=== PATIENT | female | born 1970 | race Caucasian/White ===

== ENCOUNTER 2016-12-02 17:50 | Inpatient (IN) | payer OTHER ==
[~2016-12-02] VITALS: Ht 162.6 cm; Wt 91.4 kg
[2016-12-02] MEDS ORDERED: BSP/10 PO (19:57)
[2016-12-02] MEDS ORDERED: CHOL100010 PO (19:57)
[2016-12-02] MEDS ORDERED: OMEG10007 PO (19:57)
[2016-12-02] MEDS ORDERED: DULO60CA44 PO (19:57)
[2016-12-02] MEDS ORDERED: TRAM-10 PO (19:57)
[2016-12-02] MEDS ORDERED: MULT-506 PO (19:57)
[2016-12-02] MEDS ORDERED: ONDANSETRON INJ 2 MG/ML 2 ML VIAL IV STA (20:03)
[2016-12-02] MEDS ORDERED: MoRPHine SULFATE 4 MG/ML 1 ML CARP\\VIAL IV STA (20:03)
[2016-12-02] MEDS ORDERED: SODIUM CHLORIDE 0.9% 500ML 500 ML IV STA (20:03)
--- NOTE | 2016-12-02 20:03 | DIAGNOSTIC IMAGING REPORT ---
CHEST ONE VIEW PORTABLE CLINICAL HISTORY: fever COMPARISON STUDY: No previous studies for comparison. FINDINGS: The cardiac and mediastinal contours are normal. There is no evidence of focal pulmonary consolidation. There is no evidence of failure. No pleural effusions are visualized.[ IMPRESSION: No active disease in the chest. Electronically signed by: Mark Stevens M.D. 12/02/2016 8:02 PM Dictated Date/Time: 12/02/2016 8:02 PM
[2016-12-02 20:26] LABS: HEMATOCRIT 28.4 % (37-47); MEAN CELL VOLUME 71.9 fL (80-100); MEAN CORPUSCULAR HEMOGLOBIN 23.3 pg (25-34); MEAN CORPUSCULAR HGB CONC 32.4 g/dl (32-36); MEAN PLATELET VOLUME 8.9 fL (7.4-10.4); PLATELET COUNT 420 K/uL (130-400); RED BLOOD COUNT 3.95 M/uL (4.2-5.4); WHITE BLOOD COUNT 18.99 K/uL (4.8-10.8)
[2016-12-02 20:28] LABS: ISTAT CREATININE 0.5 mg/dl (0.6-1.3); ISTAT HEMOGLOBIN 9.9 g/dl (12.0-16.0); ISTAT IONIZED CALCIUM 1.04 mmol/l (1.12-1.32)
[2016-12-02 20:34] LABS: INR 1.1 (0.9-1.1); PROTHROMBIN TIME (PATIENT) 11.4 SECONDS (9.0-12.0)
[2016-12-02 20:44] LABS: ALT/SGPT 21 U/L (12-78); AST/SGOT 14 U/L (15-37); BLOOD UREA NITROGEN 11 mg/dl (7-18); BUN/CREATININE RATIO 20.8 (10-20); CALCIUM 8.2 mg/dl (8.5-10.1); CARBON DIOXIDE 28 mmol/L (21-32); CHLORIDE 105 mmol/L (98-107); CREATININE 0.54 mg/dl (0.60-1.20); GLUCOSE 109 mg/dl (70-99); MAGNESIUM 2.3 mg/dl (1.8-2.4); POTASSIUM 3.6 mmol/L (3.5-5.1); SODIUM 141 mmol/L (136-145)
[2016-12-02 20:47] LABS: ALKALINE PHOSPHATASE 123 U/L (45-117)
[2016-12-02 21:04] LABS: COMPLETE YES; EOSINOPHIL % 0.9 %; LYMPH ABS # 2.15 K/uL (1.2-3.4); LYMPHOCYTE % 11.3 %; META ABS # 0.32 K/uL (0-0); METAMYELOCYTE % 1.7 %; MYELOCYTE % 0.9 %; NEUTROPHILS % 79.1 %; POLYCHROMASIA 1+
[2016-12-02 21:48] LABS: URINE APPEARANCE CLEAR (CLEAR); URINE BILIRUBIN NEG (NEG); URINE COLOR DK YELLOW; URINE EPITHELIAL CELL AUTO >30 /lpf (0-5); URINE NITRITE NEG (NEG); URINE PH 5.5 (4.5-7.5); URINE SPECIFIC GRAVITY 1.019 (1.000-1.030); UROBILINOGEN NEG (NEG); ZZUR CULT IF INDIC CLEAN CATCH NO
[2016-12-02 21:51] LABS: MANUAL MICROSCOPIC REQUIRED? NO; REVIEW REQ? NO
--- NOTE | 2016-12-02 22:09 | DIAGNOSTIC IMAGING REPORT ---
ULTRASOUND RIGHT VENOUS DOPP LOWER EXT UNILAT CLINICAL HISTORY: Right leg swelling COMPARISON STUDY: No previous studies for comparison. FINDINGS: Real-time and color flow Doppler imaging were performed. Flow was seen within the femoral, popliteal and calf veins with no intraluminal thrombus demonstrated. The saphenous vein is patent. There is right lower extremity edema. IMPRESSION: No evidence of right lower extremity DVT Electronically signed by: Mark Stevens M.D. 12/02/2016 10:08 PM Dictated Date/Time: 12/02/2016 10:07 PM
[2016-12-02] MEDS ORDERED: OPTIRAY 320 IV PRN (22:30)
--- NOTE | 2016-12-02 22:30 | DIAGNOSTIC IMAGING REPORT ---
ENHANCED CT SCAN OF THE RIGHT HIP AND FEMUR CT DOSE: 721.68 mGy.cm CLINICAL HISTORY: Right hip pain TECHNIQUE: Patient was scanned in a dynamic helical fashion during intravenous administration 116 cc of Optiray 320. COMPARISON STUDY: None. FINDINGS: There is artifact secondary to a total right hip arthroplasty. Interval development of bilateral hip surgery. No evidence of with recent "only minimally the right. There is a fluid collection containing air bubbles within the lateral aspect the proximal thigh. This measures 12 cm x 7 cm x 7 cm. This could represent a postsurgical fluid collection or abscess. Clinical correlation this regard is advocated. There is a small joint effusion at the level the knee. No acute fractures or dislocations are visualized. IMPRESSION: 1. Postsurgical changes of a total right hip arthroplasty. 2. No acute fractures 3. 12 x 7 x 7 mm fluid collection containing air bubbles within the lateral aspect of the proximal thigh. This may relate to prior surgery. Given the air bubbles, this could represent an abscess. Clinical correlation with the date of the surgical procedure is recommended. Electronically signed by: Mark Stevens M.D. 12/02/2016 10:29 PM Dictated Date/Time: 12/02/2016 10:23 PM
[2016-12-02] MEDS ORDERED: VANCOMYCIN INJ 1,800 MG in SODIUM CHLORIDE 0.9% 500ML 500 ML IV STA (22:47)
[2016-12-02] MEDS ORDERED: PIPERACILLIN/TAZOBACTAM 4.5 GM/100ML D5W IV STA (22:47)
--- NOTE | 2016-12-02 23:05 | Surgery Progress Note ---
Surgery Progress Note Date of Service Dec 02, 2016. Subjective called by ER doctor for Rt hip abscess seen on CT scan Objective Vital Signs: Date Time Temp Pulse Resp B/P Pulse Ox O2 Delivery O2 Flow Rate FiO2 12/02/16 22:32 103 20 124/66 100 Room Air 12/02/16 20:55 88 20 122/71 99 Room Air 12/02/16 18:10 37.3 102 18 123/69 100 Room Air Laboratory Results: Results Past 24 Hours Test 12/02/16 20:09 12/02/16 20:12 12/02/16 20:15 12/02/16 21:30 Range/Units Bedside Lactic Acid Venous 1.94 0.90-1.70 mmol/L Bedside Hemoglobin 9.9 12.0-16.0 g/dl Bedside Hematocrit 29 37-47 % Bedside Sodium 138 135-144 mEq/L Bedside Potassium 5.1 3.3-5.0 mEq/L Bedside Chloride 103 101-112 mEq/L Bedside Total CO2 27 24-31 mEq/l Anion Gap 14.0 8.0 3-11 mmol/L Bedside Blood Urea Nitrogen 13 7-18 mg/dl Bedside Creatinine 0.5 0.6-1.3 mg/dl Bedside Glucose (other) 113 70-99 mg/dl Bedside Ionized Calcium (Lázaro) 1.04 1.12-1.32 mmol/l White Blood Count 18.99 4.8-10.8 K/uL Red Blood Count 3.95 4.2-5.4 M/uL Hemoglobin 9.2 12.0-16.0 g/dL Hematocrit 28.4 37-47 % Mean Corpuscular Volume 71.9 80-100 fL Mean Corpuscular Hemoglobin 23.3 25-34 pg Mean Corpuscular Hemoglobin Concent 32.4 32-36 g/dl Platelet Count 420 130-400 K/uL Mean Platelet Volume 8.9 7.4-10.4 fL RDW Standard Deviation 45.1 36.4-46.3 fL RDW Coefficient of Variation 17.4 11.5-14.5 % Neutrophils % (Manual) 79.1 % Lymphocytes % (Manual) 11.3 % Monocytes % (Manual) 6.1 % Eosinophils % (Manual) 0.9 % Metamyelocytes % 1.7 % Myelocytes % 0.9 % Neutrophils # (Manual) 15.02 1.4-6.5 K/uL Total Absolute Neutrophils 15.02 1.4-6.5 K/uL Lymphocytes # (Manual) 2.15 1.2-3.4 K/uL Total Absolute Lymphocytes 2.15 1.2-3.4 K/uL Monocytes # (Manual) 1.16 0.11-0.59 K/uL Eosinophils # (Manual) 0.17 0-0.5 K/uL Metamyelocytes # 0.32 0-0 K/uL Myelocytes # 0.17 0-0 K/uL Polychromasia 1+ Erythrocyte Sedimentation Rate > 90 0-21 mm/hr Prothrombin Time 11.4 9.0-12.0 SECONDS Prothromb Time International Ratio 1.1 0.9-1.1 Sodium Level 141 136-145 mmol/L Potassium Level 3.6 3.5-5.1 mmol/L Chloride Level 105 98-107 mmol/L Carbon Dioxide Level 28 21-32 mmol/L Blood Urea Nitrogen 11 7-18 mg/dl Creatinine 0.54 0.60-1.20 mg/dl Est Creatinine Clear Calc Drug Dose 143.8 ml/min Estimated GFR () 132.1 Estimated GFR (Non- 114.0 BUN/Creatinine Ratio 20.8 10-20 Random Glucose 109 70-99 mg/dl Calcium Level 8.2 8.5-10.1 mg/dl Magnesium Level 2.3 1.8-2.4 mg/dl Total Bilirubin 0.3 0.2-1 mg/dl Direct Bilirubin 0.1 0-0.2 mg/dl Aspartate Amino Transf (AST/SGOT) 14 15-37 U/L Alanine Aminotransferase (ALT/SGPT) 21 12-78 U/L Alkaline Phosphatase 123 45-117 U/L Total Creatine Kinase 34 26-192 U/L Creatine Kinase MB < 0.5 0.5-3.6 ng/ml Creatine Kinase MB Ratio 0-3.0 Troponin I < 0.015 0-0.045 ng/ml C-Reactive Protein 10.80 0-0.29 mg/dl Total Protein 6.9 6.4-8.2 gm/dl Albumin 2.0 3.4-5.0 gm/dl Urine Color DK YELLOW Urine Appearance CLEAR CLEAR Urine pH 5.5 4.5-7.5 Urine Specific [place] 1.019 1.000-1.030 Urine Protein NEG NEG Urine Glucose (UA) NEG NEG Urine Ketones TRACE NEG Urine Occult Blood 3+ NEG Urine Nitrite NEG NEG Urine Bilirubin NEG NEG Urine Urobilinogen NEG NEG Urine Leukocyte Esterase NEG NEG Urine WBC (Auto) 1-5 0-5 /hpf Urine RBC (Auto) >30 0-4 /hpf Urine Hyaline Casts (Auto) 1-5 0-5 /lpf Urine Epithelial Cells (Auto) >30 0-5 /lpf Urine Bacteria (Auto) NEG NEG Microbiology Results 12/02/16 Blood Culture, Received Pending 12/02/16 Blood Culture, Received Pending Assessment & Plan 12/02/16- Rt hip pain- appears to have abscess w/n Rt hip soft tissue which is very close to hip joint arthroplasty- suggest ortho evaluation- discussed with doctor
[2016-12-02] MEDS ORDERED: SODIUM CHLORIDE 0.9% 1000ML 2,000 ML IV STA (23:07)
[2016-12-03] MEDS ORDERED: ONDANSETRON INJ 2 MG/ML 2 ML VIAL IV PRN (00:30)
[2016-12-03] MEDS ORDERED: MoRPHine SULFATE 2 MG/ML CARP IV PRN (00:30)
[2016-12-03] MEDS ORDERED: ACETAMINOPHEN 325 MG TAB PO PRN (00:30)
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
[2016-12-03 00:45] VITALS: BP 125/73; PULSE 100; TEMP 36.8; O2SAT 98; Ht 162.6 cm; Wt 91.4 kg
[2016-12-03] MEDS ORDERED: VANCOMYCIN CONSULT ACTIVE PRN (01:15)
[2016-12-03] MEDS ORDERED: PIPERACILL/TAZOBAC CONSULT ACTIVE PRN (01:15)
[2016-12-03] MEDS: MoRPHine SULFATE 4 MG/ML 1 ML CARP\\VIAL IV PRN ×2 (01:28→13:54)
[2016-12-03] MEDS: NSS + 20MEQ KCL 1000ML 1,000 ML IV SCH ×3 (02:22→21:47)
[2016-12-03] MEDS: PIPERACILL/TAZOBAC IV 3.375 GM in DEXTROSE 5% 100ML 100 ML IV SCH ×3 (04:09→20:21)
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
[2016-12-03 07:05] VITALS: BP 129/76; PULSE 95; TEMP 37.4; O2SAT 97
--- NOTE | 2016-12-03 07:29 | DIAGNOSTIC IMAGING REPORT ---
SINGLE VIEW PELVIS; SINGLE VIEW RIGHT HIP CLINICAL HISTORY: Right hip pain. Abscess. FINDINGS: An AP view of the pelvis and a crosstable lateral view of the right hip are correlated with CT scan of the right hip dated 12/02/2016. The skeletal structures are osteopenic. No fracture is seen. Chronic posttraumatic deformity and postoperative change is identified in the left proximal femur. There are healed bilateral pubic ring fractures. A buttress plate transfixes the pubic symphysis. A right hip arthroplasty is in near-anatomic alignment. No periprosthetic lucency is identified. Heterotopic bone overlies the right hip. Significant soft tissue edema is noted overlying the right hip. Sclerotic change is present in the sacroiliac joints. Excreted contrast fills the bladder. Lumbosacral spondylosis is partially imaged. IMPRESSION: 1. No acute bony abnormality is identified in the pelvis. 2. Chronic posttraumatic and postoperative changes as above. 3. Soft tissue edema overlies the right hip. Electronically signed by: Stephan Cintron M.D. 12/03/2016 7:28 AM Dictated Date/Time: 12/03/2016 7:25 AM
[2016-12-03 08:29] LABS: HEMATOCRIT 25.8 % (37-47); MEAN CELL VOLUME 74.1 fL (80-100); MEAN CORPUSCULAR HEMOGLOBIN 23.9 pg (25-34); MEAN CORPUSCULAR HGB CONC 32.2 g/dl (32-36); MEAN PLATELET VOLUME 8.9 fL (7.4-10.4); PLATELET COUNT 401 K/uL (130-400); RED BLOOD COUNT 3.48 M/uL (4.2-5.4); WHITE BLOOD COUNT 15.72 K/uL (4.8-10.8)
--- NOTE | 2016-12-03 08:59 | Pharmacy Progress Note ---
Pharmacy Antibiotic Consult Date of Service: Dec 03, 2016. Pharmacy Dosing Scope Pharmacy is consulted to initiate Vanco/Zosyn IV dosing therapy, order appropriate labs and adjust drug dose/frequency. Subjective The patient is a 46 year old female admitted on Dec 02, 2016 at 23:54. Objective Height (Feet): 5 Height (Inches): 4.00 Weight (Kilograms): 91.400 Lab Results (24hrs): Item Value Date Time Creatinine 0.54 mg/dl L 12/02/162014 Est Creatinine Clear Calc Drug Dose 143.8 ml/min 12/02/162014 Item Value Date Time Blood Culture Received 12/02/162014 Blood Pending Blood Culture Received 12/02/161999 Blood Pending Laboratory Tests Test 12/02/16 20:15 12/03/16 08:21 BUN/Creatinine Ratio 20.8 Blood Urea Nitrogen 11 mg/dl Creatinine 0.54 mg/dl White Blood Count 18.99 K/uL 15.72 K/uL Red Blood Count 3.95 M/uL 3.48 M/uL Hemoglobin 9.2 g/dL 8.3 g/dL Hematocrit 28.4 % 25.8 % Mean Corpuscular Volume 71.9 fL 74.1 fL Mean Corpuscular Hemoglobin 23.3 pg 23.9 pg Mean Corpuscular Hemoglobin Concent 32.4 g/dl 32.2 g/dl Platelet Count 420 K/uL 401 K/uL Mean Platelet Volume 8.9 fL 8.9 fL Assessment & Plan Pt is a 46 yo F p/w right hip abscess s/p right right hip arthroplasty 8 years ago. BC are currently pending. Pt population p'kinetics: t1/2=6.6hrs, ke=0.104. Renal fxn looks excellent; however, did receive IV contrast dye in addition to high dose Vanc and EI Zosyn. I have chosen a more aggressive regimen for a pt of her BMI due to her excellent renal fxn and c/s's have not resulted. If BC come back NGTD or renal fxn declines, it may be possible to scale back on the dosing interval due to her risk of accumulation. Vanco * Loading dose: Vanco 1800mg (20mg/kg) IV X 1 dose then: * Vanco 1400mg (15mg/kg) IV every 8 hours starting at 1000 * Goal trough level estimate: between 15 - 20 mcg/mL. * Trough level has been ordered for: . Zosyn * Received 30 min 3.375g infsn * Now receiving EI Zosyn 3.375g, appropriate for eCrCL>20cc/min, and clinical status Thank you for consulting the pharmacy kinetic team and including us in the care of Ms. Lockhart Pharmacy will continue to follow and will adjust dose/frequency as necessary. Thank you
[2016-12-03 09:01] LABS: BUN/CREATININE RATIO 15.7 (10-20); CALCIUM 8.2 mg/dl (8.5-10.1); CREATININE 0.4 mg/dl (0.60-1.20); POTASSIUM 3.7 mmol/L (3.5-5.1)
[2016-12-03] MEDS: DULOXETINE HCL 60 MG CAP PO SCH (09:10)
[2016-12-03 09:46] LABS: BASO % 0.3 %; BASO ABS # 0.04 K/uL (0-0.2); COMPLETE YES; EOS % 0.6 %; IG% 4.7 %; LYMPH ABS # 2.51 K/uL (1.2-3.4); MICROCYTOSIS PRESENT; MONO % 4.7 %; NEUT % 73.7 %; TARGET CELLS 1+; TOXIC GRANULATION 2+
[2016-12-03] MEDS: VANCOMYCIN INJ 1,400 MG in SODIUM CHLORIDE 0.9% 500ML 500 ML IV SCH ×2 (10:16→18:40)
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
--- NOTE | 2016-12-03 14:43 | DIAGNOSTIC IMAGING REPORT ---
Ultrasound guided aspiration GUIDANCE NEEDLE PLACEMENT CLINICAL HISTORY: r/o abscess and send aspirate for cell count/culture infection TECHNIQUE: Ultrasound guided aspiration COMPARISON STUDY: CT right hip dated 12/02/2016 FINDINGS: Following description of procedure and informed consent, a 19-gauge needle was advanced into the complex collection lateral to the right hip. 10 cc of complex fluid was withdrawn. This is sent to pathology for further evaluation. There were no complications. IMPRESSION: Successful diagnostic aspiration of the complex collection lateral to the right hip. Electronically signed by: Ishaan Fraser M.D. 12/03/2016 2:41 PM Dictated Date/Time: 12/03/2016 2:40 PM
[2016-12-03 14:55] VITALS: BP 123/76; PULSE 96; TEMP 36.9; O2SAT 99
[2016-12-03 16:10] VITALS: O2SAT 99
[2016-12-03] MEDS: OXYCODONE/ACETAMINOPHEN 5-325 TAB PO PRN ×2 (18:43→23:07)
[2016-12-03 19:41] LABS: SYNOVIAL FLUID APPEARANCE TURBID; SYNOVIAL FLUID COLOR PALE YELLOW
[2016-12-03 19:46] LABS: SYNOVIAL FLUID MONONUC RELAT 3.7 %; SYNOVIAL FLUID POLYNUC RELAT 96.3 %
[2016-12-03 23:27] VITALS: BP 125/76; PULSE 96; TEMP 37.4; O2SAT 99
[2016-12-04] VITALS (12 sets, daily range): BP systolic 104–143; BP diastolic 67–84; PULSE 82–100; TEMP 36.7–37.6; O2SAT 95–100
[2016-12-04] MEDS: VANCOMYCIN INJ 1,400 MG in SODIUM CHLORIDE 0.9% 500ML 500 ML IV SCH ×3 (01:45→18:38)
[2016-12-04] MEDS: PIPERACILL/TAZOBAC IV 3.375 GM in DEXTROSE 5% 100ML 100 ML IV SCH ×2 (04:12→11:45)
[2016-12-04 06:43] LABS: MEAN CELL VOLUME 73.2 fL (80-100); MEAN CORPUSCULAR HEMOGLOBIN 23.6 pg (25-34); MEAN CORPUSCULAR HGB CONC 32.2 g/dl (32-36); MEAN PLATELET VOLUME 8.6 fL (7.4-10.4); PLATELET COUNT 396 K/uL (130-400); RED BLOOD COUNT 3.14 M/uL (4.2-5.4); WHITE BLOOD COUNT 14.02 K/uL (4.8-10.8)
[2016-12-04 07:11] LABS: ANISOCYTOSIS PRESENT; COMPLETE YES; EOSINOPHIL % 0.9 %; HYPOCHROMIA PRESENT; LYMPH ABS # 1.23 K/uL (1.2-3.4); LYMPHOCYTE % 8.8 %; MICROCYTOSIS PRESENT; NEUTROPHILS % 89.4 %; TARGET CELLS 1+; TOXIC GRANULATION 2+
[2016-12-04 07:14] LABS: BUN/CREATININE RATIO 15.7 (10-20); CALCIUM 7.8 mg/dl (8.5-10.1); CREATININE 0.4 mg/dl (0.60-1.20); POTASSIUM 3.5 mmol/L (3.5-5.1)
[2016-12-04] MEDS: OXYCODONE/ACETAMINOPHEN 5-325 TAB PO PRN ×3 (08:04→19:48)
[2016-12-04] MEDS: DULOXETINE HCL 60 MG CAP PO SCH (09:10)
[2016-12-04] MEDS: NSS + 20MEQ KCL 1000ML 1,000 ML IV SCH ×2 (09:11→18:38)
[2016-12-04] MEDS ORDERED: VANCOMYCIN TROUGH ONE (09:30)
--- NOTE | 2016-12-04 11:17 | Pharmacy Progress Note ---
Pharmacy Antibiotic Prog Note Date of Service: Dec 04, 2016. Subjective: The patient is currently receiving vancomycin 1400 mg iv q 8 hr and zosyn 3.375 gm iv q 8 hrs for hip infection The patient is currently on day # 3 of IV therapy Objective: Height (Feet): 5 Height (Inches): 4.00 Weight (Kilograms): 91.400 Levels: Item Value Date Time Vancomycin Level Trough 15.9 mcg/ml 12/04/16 0938 Lab Results (24hrs): Laboratory Tests Test 12/04/16 06:23 BUN/Creatinine Ratio 15.7 Blood Urea Nitrogen 6 mg/dl Creatinine 0.40 mg/dl White Blood Count 14.02 K/uL Red Blood Count 3.14 M/uL Hemoglobin 7.4 g/dL Hematocrit 23.0 % Mean Corpuscular Volume 73.2 fL Mean Corpuscular Hemoglobin 23.6 pg Mean Corpuscular Hemoglobin Concent 32.2 g/dl Platelet Count 396 K/uL Mean Platelet Volume 8.6 fL Micro Results: Item Value Date Time Gram Stain - Final Resulted 12/03/16 0000 Joint Fluid/Space (Synovial) Hip , Right Blood Culture - Preliminary Resulted 12/02/162014 Blood NO GROWTH TO DATE. Blood Culture - Preliminary Resulted 12/02/161999 Blood NO GROWTH TO DATE. Assessment & Plan: Patient receiving vancomycin and zosyn for hip abscess/possible septic hip joint. ID is following the patient. BC x 2 are no growth, joint/synovial culture prelim showing staph aureus - identification/sensitivities are pending. Vancomycin: * Trough this am was therapeutic at ~15.9 mcg/ml (goal 15-20 mcg/ml for joint infection) * Will continue with current regimen of 1400 mg iv q 8 hrs for now * Will consider rechecking trough in next 2-3 days if vancomycin is to be continued Zosyn: * 3.375 gm iv q 8 hrs - appropriate for CrCl>20 ml/min (actual CrCl >100 ml/min) Pharmacy will continue to follow and will adjust dose/frequency as necessary. Thank you
[2016-12-04] MEDS ORDERED: VNCE1000 IV (11:59)
[2016-12-04] MEDS ORDERED: PIPE1INJ11 IV (11:59)
--- NOTE | 2016-12-04 12:06 | Discharge Instructions ---
Discharge Instructions Date of Service Dec 04, 2016. Admission Reason for Admission: Abscess Of Right Hip Discharge Discharge Diagnosis / Problem: right hip abscess, sepsis Discharge Goals Goal(s): Decrease discomfort, Improve function, Increase independence, Improve disease control, Learn about illness, Diagnostic testing Activity Recommendations Activity Limitations: resume your previous activity Exercise/Sports Limitations: none . Instructions / Follow-Up Instructions / Follow-Up Patient to be transferred to [facility] under Dr Arroyo Will need to continue on IV antibiotics zosyn and vancomycin Will transfuse at least one unit PRBCs before transfer Transfer via ambulance BLS Current Hospital Diet Patient's current hospital diet: Regular Diet Discharge Diet Recommended Diet: Regular Diet Pending Studies Studies pending at discharge: no Medical Emergencies . Who to Call and When: Medical Emergencies: If at any time you feel your situation is an emergency, please call 911 immediately. . Non-Emergent Contact Non-Emergency issues call your: Primary Care Provider Call Non-Emergent contact if: you have a fever, your pain is worsening . . "Provider Documentation" section prepared by Rogelio Holguin. VTE Core Measure Inpt VTE Proph given/why not?: SCD's
--- NOTE | 2016-12-04 12:09 | Orthopedic Progress Note ---
Orthopedic Progress Note Date of Service Dec 04, 2016. Subjective Reports: feeling well Additional Notes: Awaiting transfer to [place] for definitive tx of the right hip. States she is waiting for a blood transfusion then the plan is to transfer to [place] via ambulance when bed is available. Objective Date Time Temp Pulse Resp B/P Pulse Ox O2 Delivery O2 Flow Rate FiO2 12/04/16 11:39 37.2 89 16 120/76 100 Room Air 12/04/16 08:52 95 Room Air 12/04/16 08:00 Room Air 12/04/16 07:58 37.0 94 16 123/78 95 Room Air 12/03/16 23:27 37.4 96 15 125/76 99 Room Air 12/03/16 19:05 Room Air 12/03/16 16:10 99 Room Air 12/03/16 14:55 36.9 96 18 123/76 99 Room Air Laboratory Results 24 Hours: Test 12/04/16 06:23 White Blood Count 14.02 K/uL Red Blood Count 3.14 M/uL Hemoglobin 7.4 g/dL Hematocrit 23.0 % Mean Corpuscular Volume 73.2 fL Mean Corpuscular Hemoglobin 23.6 pg Mean Corpuscular Hemoglobin Concent 32.2 g/dl Platelet Count 396 K/uL Mean Platelet Volume 8.6 fL Assessment & Plan Assessment: Right hip abscess. Hx of right CHENG Possible infected right CHENG. Plan: Dr. Holguin has been in contact with the [facility] that the patient is to be transferred. At this time, she is going to have a blood transfusion then transfer when a bed is available. Plan is for patient to see Dr. Jurado, the surgeon who replaced her hip originally. We will see the patient on a prn basis.
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
== END 2016-12-04 20:00 | disposition short-term general hospital (02) | DRG 559 ==
LOC: ENRESERVDT → ENRESERVTM → C.EDB 17:52 → C.MSW 23:54
PROVIDERS: ADMIT Hospitalist; ATTEND Hospitalist
DX: T84.51XA Infection and inflammatory reaction due to internal right hip prosthesis, initial encounter (principal); A41.9 Sepsis, unspecified organism; L02.415 Cutaneous abscess of right lower limb; Z96.641 Presence of right artificial hip joint; D64.9 Anemia, unspecified; Z87.891 Personal history of nicotine dependence; F41.9 Anxiety disorder, unspecified; F32.9 Major depressive disorder, single episode, unspecified; Y83.1 Surgical operation with implant of artificial internal device as the cause of abnormal reaction of the patient, or of later complication, without mention of misadventure at the time of the procedure; A49.01 Methicillin susceptible Staphylococcus aureus infection, unspecified site